=== PATIENT | female | born 1985 | race Caucasian/White ===

== ENCOUNTER 2019-11-05 11:04 | Emergency (ER) | payer SELFPAY ==
[2019-11-05 11:09] VITALS: BP 112/58
[2019-11-05] MEDS ORDERED: HYDROCODONE/ACETAMINOPHEN 5-325 MG TABLET PO ONE (11:40)
--- NOTE | 2019-11-05 11:44 | ER Document Report ---
HPI - HPI Patient complains to provider of: Right ankle injury Time Seen by Provider: 11/05/19 11:37 Context: 34-year-old female with no previous medical problems presents to the emergency room complaining of right ankle pain. States she slipped and fell in [place] this morning twisting and landing on her right ankle. States she heard "a pop" painful to bear weight. History of a previous fracture as a child. No medications for symptoms. [place] . Associated Symptoms: None Exacerbated by: Movement, Walking Relieved by: Remaining still Similar symptoms previously: Yes - fx at age 10 Recently seen / treated by doctor: No - ROS Systems Reviewed and Negative: Yes All other systems reviewed and negative - CONSTITUTIONAL Constitutional: DENIES: Fever - NEURO Neurology: DENIES: Weakness - RESPIRATORY Respiratory: DENIES: Trouble Breathing - REPRODUCTIVE Reproductive: DENIES: : - MUSCULOSKELETAL Musculoskeletal: REPORTS: Extremity pain - DERM Skin Color: Normal Skin Problems: None Past Medical History - General Information source: Patient - Social History Smoking Status: Current Every Day Smoker Frequency of alcohol use: Occasional Drug Abuse: None Lives with: Family Family History: Reviewed & Not Pertinent Vertical Provider Document - CONSTITUTIONAL Agree With Documented VS: Yes Exam Limitations: No Limitations General Appearance: Mild Distress - INFECTION CONTROL TRAVEL OUTSIDE OF THE [place] IN LAST 30 DAYS: No - HEENT HEENT: Atraumatic, Normocephalic - NECK Neck: Normal Inspection, Supple - RESPIRATORY Respiratory: Breath Sounds Normal, No Respiratory Distress, Chest Non-Tender. negative: Rales, Rhonchi, Wheezing - CARDIOVASCULAR Cardiovascular: Regular Rate, Regular Rhythm, No Murmur - BACK Back: Normal Inspection - MUSCULOSKELETAL/EXTREMETIES Musculoskeletal/Extremeties: Tender - Right ankle is tender to palpation. With a moderate amount of swelling noted. Painful range of motion with flexion, extension, eversion, and inversion of the right ankle. Tenderness and swelling over the right lateral malleolus - NEURO Level of Consciousness: Awake, Alert Motor/Sensory: No Motor Deficit, No Sensory Deficit Notes: Positive right pedal pulse. - DERM Integumentary: Warm, Dry, No Rash Course - Re-evaluation Re-evalutation: 11/05/19 12:32 Patient is resting comfortably with decreased pain. Reviewed x-ray results with patient. Aircast applied by nursing staff as documented. Patient has crutches at home. Counseled to rest, ice, elevate her ankle. Tylenol and/or Motrin as needed for pain. Outpatient follow-up with orthopedics if not improving in 2 to 3 days. On-call physician was provided. Patient was given strict return to the emergency room guidelines. Return for any new or worsening symptoms. All questions were answered. Patient verbalized understanding and agrees with plan of care. - Vital Signs Vital signs: Temp Pulse Resp BP Pulse Ox 97.9 F 78 14 112/58 L 100 11/05/19 11:07 11/05/19 11:07 11/05/19 11:07 11/05/19 11:07 11/05/19 11:07 - Diagnostic Test Radiology reviewed: Reports reviewed Procedures - Immobilization Right Ankle Time completed: 12:32 Immobilizer type: Ankle stirrup Performed by: RN Post-Proc Neuro Vasc Exam: Normal Alignment checked and good: Yes Discharge - Discharge Clinical Impression: Right ankle sprain Qualifiers: Encounter type: initial encounter Involved ligament of ankle: unspecified ligament Qualified Code(s): S93.401A - Sprain of unspecified ligament of right ankle, initial encounter Condition: Stable Disposition: HOME, SELF-CARE Instructions: Ankle Stirrup Splint ([facility]), Use of Crutches ([facility]), Ice & Elevation ([facility]), Sprained Ankle ([facility]) Additional Instructions: Your x-ray does not show any acute fracture. You have a sprained ankle. Keep the area elevated, apply ice 20 minutes every 2 hours, and use crutches as needed. You should take ibuprofen 600 mg every 6 hours as needed for pain. Please return if you have worsening pain and swelling, fever greater than 101, you notice spreading redness from the area, or have any other symptoms that are concerning to you. Please follow-up with orthopedic surgery if your symptoms have not improved in the next 2-3 weeks. Referrals: GWENDOLYN WADDELL JR, DO [ACTIVE PROVISIONAL STAFF] - Follow up as needed
--- NOTE | 2019-11-05 12:19 | RADIOLOGY REPORT (SQ) ---
EXAM DESCRIPTION: ANKLE RIGHT COMPLETE IMAGES COMPLETED DATE/TIME: 11/05/2019 12:04 pm REASON FOR STUDY: injury COMPARISON: None. NUMBER OF VIEWS: Three views. TECHNIQUE: AP, lateral, and oblique radiographic images acquired of the right ankle. LIMITATIONS: None. FINDINGS: MINERALIZATION: Normal. BONES: No acute fracture or dislocation no worrisome bone lesions. Incidental note is made of an oss icle interposed between the medial malleolus and the talus, likely on the basis of sequela of remote trauma. Mild tibiotalar degenerative changes are present. JOINTS: No effusions. SOFT TISSUES: Soft tissue swelling overlies the lateral malleolus. OTHER: No other significant finding. IMPRESSION: Lateral swelling without underlying fracture. TECHNICAL DOCUMENTATION: JOB ID: [id number] 2010 [email or web address] All Rights Reserved Reading location - IP/workstation name: [email or web address]
== END 2019-11-05 12:42 | disposition home or self-care (01) ==
LOC: ER 11:04
PROC: 2W3QX1Z Immobilization of Right Lower Leg using Splint (ICD-10-PCS; principal; 2019-11-05)
DX: S93.401A Sprain of unspecified ligament of right ankle, initial encounter (principal); M25.571 Pain in right ankle and joints of right foot; W01.0XXA Fall on same level from slipping, tripping and stumbling without subsequent striking against object, initial encounter; F17.200 Nicotine dependence, unspecified, uncomplicated
CPT/HCPCS: 99283